=== PATIENT | female | born 1990 | race Caucasian/White ===

== ENCOUNTER 2017-02-21 17:43 | Inpatient (IN) | payer OTHER ==
[~2017-02-21] VITALS: Ht 152.4 cm; Wt 67.2 kg
[2017-02-21 20:57] LABS: BASOPHIL % 0.3 % (0-2); PLATELET COUNT 347 x10^3mcL (130-400); RED CELL DISTRIBUTION WIDTH 12.8 % (11.5-14.5)
[2017-02-21 21:00] LABS: UA SPECIFIC GRAVITY <=1.005 (1.005-1.035); microscopic required? YES; urine erythrocyte 2+ (NEGATIVE)
[2017-02-21 21:01] LABS: CALCIUM 9.3 mg/dL (8.5-10.1); CARBON DIOXIDE 26.6 mmol/L (21-32); CHLORIDE SERUM 97 mmol/L (98-107); CREATININE SERUM 0.6 mg/dL (0.6-1.0); GFR1 > 60 mL/min; GLUCOSE SERUM 97 mg/dL (74-106); POTASSIUM SERUM 3.1 mmol/L (3.5-5.1); SODIUM SERUM 134 mmol/L (136-145)
[2017-02-21 21:06] LABS: ALBUMIN 3.3 g/dL (3.4-5.0); ALKALINE PHOSPHATASE 129 U/L (46-116); ALT/SGPT 44 U/L (14-59); AST/SGOT 25 U/L (15-37); BILIRUBIN TOTAL 0.6 mg/dL (0.20-1.00); TOTAL PROTEIN, SERUM 8.8 g/dL (6.4-8.2)
[2017-02-21 23:51] VITALS: BP 114/77
[2017-02-21 23:57] VITALS: BP 114/77
[2017-02-22 00:24] LABS: T3 TOTAL 1.07 ng/mL
[2017-02-22 00:29] LABS: MAGNESIUM 2.2 mg/dL (1.8-2.4); PHOSPHOROUS 3.3 mg/dL (2.5-4.9)
[2017-02-22 00:30] LABS: FREE T4 1.36 ng/dL (0.76-1.46); FREE THYROXINE INDEX 3.3 ug/dL (1.4-4.5); T4(THYROXINE) 9.4 ug/dL (4.7-13.3)
[2017-02-22 00:32] LABS: CHOLESTEROL/HDL RATIO 8.1
[2017-02-22 02:51] LABS: AMPHETAMINE QUAL UR NONE DETECTED (NEG <=1000)
[2017-02-22 05:00] VITALS: BP 115/81
[2017-02-22 07:25] LABS: CALCIUM 8.4 mg/dL (8.5-10.1); CARBON DIOXIDE 26.8 mmol/L (21-32); CHLORIDE SERUM 104 mmol/L (98-107); CREATININE SERUM 0.6 mg/dL (0.6-1.0); GFR1 > 60 mL/min; GLUCOSE SERUM 164 mg/dL (74-106); POTASSIUM SERUM 3.6 mmol/L (3.5-5.1); SODIUM SERUM 137 mmol/L (136-145)
[2017-02-22 07:39] LABS: BASOPHIL % 0.2 % (0-2); PLATELET COUNT 293 x10^3mcL (130-400); RED CELL DISTRIBUTION WIDTH 13.4 % (11.5-14.5)
[2017-02-22 09:11] VITALS: BP 103/71
[2017-02-22 16:55] VITALS: BP 108/73
[2017-02-22 21:10] VITALS: BP 110/70
[2017-02-23 05:29] VITALS: BP 109/76
[2017-02-23 07:15] LABS: BASOPHIL % 0.4 % (0-2); PLATELET COUNT 321 x10^3mcL (130-400)
[2017-02-23 07:53] LABS: CALCIUM 8.8 mg/dL (8.5-10.1); CHLORIDE SERUM 101 mmol/L (98-107); CREATININE SERUM 0.6 mg/dL (0.6-1.0); GFR1 > 60 mL/min; GLUCOSE SERUM 104 mg/dL (74-106); POTASSIUM SERUM 3.5 mmol/L (3.5-5.1); SODIUM SERUM 136 mmol/L (136-145)
[2017-02-23 08:22] VITALS: BP 118/76
[2017-02-23] MEDS ORDERED: MAC100 PO (13:49)
[2017-02-23] MEDS ORDERED: LAC PO (13:50)
[2017-02-23] MEDS ORDERED: ESGIC CAPSULE1 EACH PO ×2 (13:50→19:31)
[2017-02-23 14:11] VITALS: BP 146/78
[2017-02-23] MEDS ORDERED: CIPRO500 MG PO ×2 (19:20→19:31)
[2017-02-23] MEDS ORDERED: DULCOLAX5 M1 PO (19:31)
== END 2017-02-23 14:20 | disposition home or self-care (01) | DRG 720 ==
LOC: ED 17:43 → DU 22:56
PROVIDERS: Emergency Medicine; ADMIT Family Medicine
DX: A41.3 Sepsis due to Hemophilus influenzae (principal); E44.0 Moderate protein-calorie malnutrition; N39.0 Urinary tract infection, site not specified; E87.1 Hypo-osmolality and hyponatremia; E87.6 Hypokalemia; R73.03 Prediabetes; E78.5 Hyperlipidemia, unspecified; Z68.28 Body mass index [BMI] 28.0-28.9, adult
CPT/HCPCS: 83880; 84439; J0696; J1885; J3480; J7030; Q0092